=== PATIENT | female | born 1935 | race Caucasian/White ===

== ENCOUNTER 2016-07-11 12:46 | Inpatient (IN) | payer MEDICARE, OTHER ==
--- NOTE | ~2016-07-11 | HP ---
History And Physical [id number] [place]. [address] NAME: MELECIO VACA : 37 STATUS : ADM Tova PAT#: [id number] AGE: 81 ADM/REG DATE : 07/11/16 MR#: [id number] REPORT SERV DATE: 07/11/16 DICTATED BY: YING HESS DATE: 07/11/16 REPORT STATUS : Draft TRANSCRIBED BY: MODL DATE: 07/11/16 DATE OF ADMISSION: 07/11/2016 Please note, the patient may need different medical record number for this encounter, as the patient is a direct admission after elective surgery. The patient admitted from PAC unit on the Hospitalist Service. CHIEF COMPLAINT: Rapid atrial fibrillation. HISTORY OF THE PRESENT ILLNESS: Obtained from the patient as well as PAC unit nursing staff. Also, prior medical records available to us were thoroughly reviewed. According to the information available, the patient is a pleasant 81-year-old white woman with history of hypertension and diabetes type 2, insulin dependent with apparent recurrent nephrolithiasis, who was scheduled for elective right ureteral stent placement and stone extraction by Dr. Denny, Urology. Postoperatively, while recovering in the PAC unit, the patient was noticed to have atrial fibrillation with rapid response, heart rate reportedly 130s. Therefore, the patient was started on Cardizem drip and Hospitalist Service was requested for admission and further management and evaluation. Note that already the patient has been seen and evaluated by the Cardiology consult, also requested in the PAC unit. Presently, the patient is comfortable with Cardizem drip, heart rate around 90s. Denies chest pain. Denies palpitations. Denies shortness of breath. The patient denies any prior history of cardiac arrhythmia or any particular cardiac event such as [place], heart failure, or prior coronary artery disease. She has hypertension, relatively well controlled as per her account on present medication. Present complaints relate mostly to the discomfort with a stent placed and cystoscopy. PAST MEDICAL HISTORY: Significant for hypertension, significant for gout, significant for diabetes type 2 insulin dependent, significant for osteoarthritis, significant for GERD, significant for nephrolithiasis with apparent recurrent kidney stone with several times lithotripsies or cystoscopies and intervention for stone extraction. PAST SURGICAL HISTORY: Significant for knee replacement in 1999, lithotripsies four times or more, knee arthroscopy in 2012, fracture femoral surgery in 1999, appendectomy age 20, cholecystectomy laparoscopic in 11/2015 and today cystoscopy with stone removal and ureteral stent placement, breast tumor removed benign in the past, and left great toenail procedure in 2004. FAMILY HISTORY: Significant for hypertension and coronary artery disease. ALLERGIES: TO AUGMENTIN, PRODUCTS INCLUDING AMOXICILLIN AND CLAVULANIC ACID, SULFA ANTIBIOTICS, NEURONTIN, BUPROPION, ZYVOX, JANUVIA, AND MORPHINE WHICH MAKES HER HALLUCINATE. HOME MEDICATIONS: According to list provided, the patient is supposed to take allopurinol 100 mg p.o. daily, vitamin C 500 mg p.o. b.i.d., vitamin B12 at 1000 mcg p.o. daily, iron sulfate 325 mg p.o. t.i.d., Novolin N (NPH) 15 units subcu q.h.s., metformin extended release 500 mg p.o. t.i.d. with meals, Flexeril 10 mg p.o. q.h.s., Prilosec 40 mg p.o. History And Physical [address] [address] NAME: MELECIO VACA : 37 STATUS : ADM Tova PAT#: [id number] AGE: 81 ADM/REG DATE : 07/11/16 MR#: [id number] REPORT SERV DATE: 07/11/16 DICTATED BY: YING HESS DATE: 07/11/16 REPORT STATUS : Draft TRANSCRIBED BY: JOSE DATE: 07/11/16 q.a.m., Amaryl 4 mg p.o. q.a.m., vitamin D3 at 1000 units p.o. q.a.m., Toprol-XL 100 mg p.o. q.a.m., potassium citrated (Urocit-K) 5 mEq tablet takes 1080 mg p.o. q.a.m., lisinopril 40 mg p.o. q.a.m., multiple vitamin without minerals one tablet p.o. daily, Percocet 5/325 one p.o. q.4 hours p.r.n. pain, nitroglycerin sublingual p.r.n. chest pain, and Phenergan 25 mg p.o. q.4 hours p.r.n. nausea and vomiting. SOCIAL HISTORY: Lives with family. Denies tobacco abuse. Denies alcohol abuse. Denies illicit recreational drug abuse. REVIEW OF SYSTEMS: As per H and P, otherwise negative in all review of systems. Please note that the comprehensive review of system was obtained and pertinent positives were including in the H and P. PHYSICAL EXAMINATION: GENERAL: Pleasant, cooperant, in no distress at this moment, complaining of pain at the site of the stent. VITAL SIGNS: Upon examination in the PAC unit, blood pressure 130/70; pulse 90, on Cardizem drip; oxygen saturation 94% on 2 L by nasal cannula; temperature 36.3 celsius, and respiratory rate 20. HEENT: With bilateral cataracts. External ocular movements intact. Throat, mild erythema. No exudate. NECK: Supple. No JVD. No bruit. No thyromegaly. No lymph nodes. LUNGS: Bilateral air entry with few bibasilar crackles. No wheezing. Good airway movement heart positive S1, S2. Irregularly irregular. Positive mitral regurgitation murmur at the apex. No rub. No gallop. PMI not displaced by palpation. ABDOMEN: Positive bowel sounds. Soft with mild suprapubic tenderness. No rebound tenderness. No CVA tenderness. No hepatosplenomegaly. EXTREMITIES: Decreased range of motion. Osteoarthritic changes. No clubbing, no cyanosis, no edema. +2 pulses. No calf tenderness. NEUROLOGIC: Alert and oriented x3. Grossly nonfocal. Slightly anxious. Otherwise, appropriate mood, affect, and cognition. Cranial nerves 2 through 12 grossly intact. Motor strength 5/5 symmetrical bilateral. Deep tendon reflexes 2/2 symmetrical bilateral. BACK: With decreased range of motion. No focal localized tenderness. No CVA tenderness. SKIN: No bruises, no rashes, no lacerations. SIGNIFICANT LABORATORY DATA: EKG (personal reading) showed atrial fibrillation at 149 beats per minute. No acute ST elevation. No prior EKG available for comparison. Sodium 141, potassium 3.6, chloride 105, bicarb 28, BUN 17, creatinine 1.08, glucose 163, calcium 9.6. White cell count 10, hemoglobin 13.9, platelet count 217. Chest x-ray (personal reading) showed no acute infiltrate. ASSESSMENT AND PLAN AND PROBLEM LIST: The patient is a pleasant 81-year-old woman admitted on the Hospitalist Service after atrial fibrillation with rapid ventricular response postoperatively. IMPRESSION: History And Physical [address] [place]. [address] NAME: MELECIO VACA : 37 STATUS : ADM Tova PAT#: [id number] AGE: 81 ADM/REG DATE : 07/11/16 MR#: [id number] REPORT SERV DATE: 07/11/16 DICTATED BY: YING HESS DATE: 07/11/16 REPORT STATUS : Draft TRANSCRIBED BY: MODMatt DATE: 07/11/16 1. Cardiovascular. a. Atrial fibrillation with rapid ventricular response, possible new versus paroxysmal. b. Hypertension. Essential hypertension. For all the above, the patient has been admitted on the Hospitalist Service on the telemetry setting. We are going to obtain stat cardiac enzymes and CK troponin I as well as electrolytes including potassium, magnesium, and phosphorus levels. Correct as indicated. Cardizem drip started and going to be continued. The patient was started already on anticoagulation with Eliquis as per Cardiology consultation and apparently plans for OLI and cardioversion tomorrow a.m. if her condition/atrial fibrillation does not correct. Continue lisinopril, continue beta-brenda with Toprol-XL. P.r.n. IV hydralazine for increased blood pressure. 1. Endocrinologic problem. a. Diabetes type 2 with long-term insulin usage and with complications. We are going to hold metformin and Amaryl for now, as the patient is going to be n.p.o. Hold NPH. Use only sliding scale for the time being. Consider to add some long- acting Levemir if the patient stays in the hospital longer than one day. b. Gout by history. Continue allopurinol for now. 2. Gastroesophageal reflux disease without esophagitis. Continue PPI with Protonix 40 mg p.o. daily. 3. Renal and genitourinary problem. a. Chronic kidney disease stage 2, likely stable at baseline. b. Recurrent nephrolithiasis. Provide adequate IV hydration. Continue outpatient medication and her followup with her trend investigator. c. Status post right ureteral stent and stone removal. Continue to monitor. Adequate pain control as per Urology. 4. Osteoarthritis, osteoporosis, deconditioning. Continue adequate pain control. PROGNOSIS: Moderately good for this admission. Discussed with the patient. Questions were answered in full. Please note, the patient is a full code at this moment as discussed with the patient at bedside. GOPI/JOSE Ying Hess M.D. / [id number] CC: Nohelia Ross M.D.
--- NOTE | ~2016-07-11 | OP ---
Record Of Operation [facility] [address] [place]. [address] NAME: MELECIO VACA : 37 STATUS : ADM Tova PAT#: [id number] AGE: 81 ADM/REG DATE : 07/11/16 MR#: [id number] REPORT SERV DATE: 07/12/16 DICTATED BY: NICHOLAS NASCIMENTO DATE: 07/12/16 REPORT STATUS : Draft TRANSCRIBED BY: MODL DATE: 07/12/16 DATE OF PROCEDURE: 07/12/2016 TRANSESOPHAGEAL ECHOCARDIOGRAM AND CARDIOVERSION REPORT INDICATION: Atrial fibrillation. PROCEDURE DESCRIPTION: After informed consent, the patient was sedated with propofol by the Anesthesia Department. The transesophageal probe was placed on the first attempt. There were no complications. TRANSESOPHAGEAL ECHOCARDIOGRAM: 2D: 1. The aortic valve is trileaflet, but opens adequately. 2. There is no evidence of left atrial appendage thrombus. 3. Left ventricular size and systolic function appears normal. 4. There is asymmetric septal hypertrophy without significant resting left ventricular outflow tract obstruction noted. 5. The mitral valve appears structurally normal. 6. The left atrium is severely enlarged. 7. Right-sided chambers are normal in size. 8. The tricuspid valve is structurally normal. 9. There is no evidence of pericardial effusion. 10.There is moderate aortic atherosclerosis noted. No evidence of aortic aneurysm. Doppler: Pulsed wave Doppler in the left atrial appendage is less than 40 cm/second. Color flow: 1. There is mild aortic regurgitation. 2. There is proq-yb-bylyodux mitral regurgitation. 3. There is mild tricuspid regurgitation. CARDIOVERSION: A single synchronized 200 joule biphasic defibrillation was delivered. Atrial fibrillation converted to normal sinus rhythm. KEYSHA/JOSE Nicholas Nascimento M.D. / [id number] CC: Nohelia Smith M.D.
--- NOTE | ~2016-07-11 | DS ---
Discharge Summary [facility] [address] [facility] [place]. [address] NAME: MELECIO VACA : 37 STATUS : DIS IN PAT#: [id number] AGE: 81 ADM/REG DATE : 07/12/16 MR#: [id number] REPORT SERV DATE: 07/14/16 DICTATED BY: LADY LARKIN DATE: 07/13/16 REPORT STATUS : Draft TRANSCRIBED BY: MODL DATE: 07/13/16 ADMISSION DATE: 07/12/2016 DISCHARGE DATE: 07/13/2016 CONSULTING PHYSICIAN: Dr. Denny for Urology, Dr. Quintero for Cardiology. FINAL DIAGNOSES: 1. Status post cardioversion for paroxysmal atrial fibrillation, newly diagnosed. 2. Hypertension. 3. Diabetes. 4. Hypomagnesemia. 5. Status post stent for ureteral stone. DIAGNOSTIC EXAMS: Chest x-ray showing no acute process, no change. Echocardiogram showing left ventricular systolic function intact of 56%, right ventricular systolic function intact, no significant valvular dysfunction. HOSPITAL COURSE: This is a 81-year-old female who has a history of diabetes, recurrent nephrolithiasis and underwent an elective right ureteral stent placement and stone extraction. Postop, the patient went to rapid atrial fibrillation and Dr. Denny consulted us for admission and Cardiology as well. Dr. Quintero saw the patient, placed the patient on Eliquis with the clearance from Dr. Denny and scheduled for cardioversion. Dr. Cote admitted the patient, and later on, the patient underwent a successful cardioversion. However, she did have a hard time urinating afterwards and a Torres was placed and there is some hematuria. Because of this, the patient got scared and does not want to take the Eliquis anymore. I discussed this with Dr. Quintero and she said that the patient is a high risk for stroke. She would need to continue that. I explained this to them and the patient finally agreed. She expressed her wishes to go home. The patient is now in normal sinus rhythm, and according to Dr. Denny, she already has Levaquin and narcotics at home that she needs to continue. The patient will now be discharged once cleared by Cardiology. She will follow up with Dr. Jeffrey Suarez in one to two weeks. Follow up with Dr. Quintero in one to two months and Dr. Sahaj in two to three weeks. The patient will be on the following medications. Eliquis 5 mg twice a day, vitamin C 500 mg twice a day, Flexeril 10 mg at bedtime, vitamin D3 of 1000 units a day, Levaquin 750 mg a day, multivitamin once a day, Metoprolol-XL 100 mg a day, Prilosec 40 mg a day, potassium titrate 5 mEq tab q.a.m., Phenergan, Nitrostat p.r.n., Percocet p.r.n., iron 325 mg three times a day, Novolin N 15 units at bedtime, metformin 500 mg three times a day, Amaryl 4 mg a day. This has been discussed with the patient to the and to the daughter at length. TIME SPENT: 40 minutes. Discharge Summary [address] [address] NAME: MELECIO VACA : 37 STATUS : DIS IN PAT#: [id number] AGE: 81 ADM/REG DATE : 07/12/16 MR#: [id number] REPORT SERV DATE: 07/14/16 DICTATED BY: LADY LARKIN DATE: 07/13/16 REPORT STATUS : Draft TRANSCRIBED BY: JOSE DATE: 07/13/16 ARMAAN/JOSE Lady Larkin M.D. / [id number] CC: Nohelia Smith M.D.
--- NOTE | ~2016-07-11 | OP ---
Record Of Operation [facility] [address] [place]. [address] NAME: MELECIO VACA : 37 STATUS : ADM Tova PAT#: [id number] AGE: 81 ADM/REG DATE : 07/11/16 MR#: [id number] REPORT SERV DATE: 07/12/16 DICTATED BY: ELDON SAVAGE DATE: 07/11/16 REPORT STATUS : Draft TRANSCRIBED BY: MODMatt DATE: 07/11/16 DATE OF PROCEDURE: 07/11/2016 PREOPERATIVE DIAGNOSES: Distal right ureteral stones with hydronephrosis and intractable right flank pain, nausea, vomiting. POSTOPERATIVE DIAGNOSES: Distal right ureteral stones with hydronephrosis and intractable right flank pain, nausea, vomiting. PROCEDURE PERFORMED: Cystoscopy, right retrograde pyelogram, right rigid ureteroscopy with laser fragmentation of the largest stone and basket removal of approximately 6 calculi from the right distal ureter and ureteral stent placement. SURGEON: Elodn Savage M.D. ANESTHESIA: General. ESTIMATED BLOOD LOSS: Less than 5 mL. INDICATIONS: This is a 81-year-old white female with a history of recurrent and bilateral ureteral stone disease. She has had a 2-day history of severe right flank pain and intractable nausea and vomiting secondary to multiple stones in the distal right ureter causing significant right hydronephrosis. She also has nonobstructing bilateral renal calculi. We are planning endoscopic stone management. Risks of infection, bleeding, failure, need for further surgery, etc. have been discussed. PROCEDURE IN DETAIL: The patient was taken to the operating room and underwent a general anesthetic. She was placed in the lithotomy position on the table, and her external genitalia were sterilely prepped and draped. The 22-Maldivian cystoscope sheath with 30-degree lens was inserted under direct vision per urethra with the aid of the video monitor. The urine was Pyridium stained and very concentrated. She had a significant cystocele. Single orifices were seen bilaterally. There were no other abnormalities within the bladder. There were no stones in the bladder. A 5-Maldivian open-ended catheter was advanced into the right orifice and a retrograde pyelogram was obtained, which demonstrated 1 cm or 2 of normal looking ureter, then multiple filling defects associated with stones and hydronephrosis and hydroureter. The renal pelvis was quite capacious. An 0.038 guidewire was advanced up into the collecting system of the kidney under fluoroscopic guidance. The distal ureter was dilated using a 9.5/11-Maldivian ureteral access sheath with obturator. The short rigid ureteroscope was then advanced alongside the guidewire up into the ureter. Two small stones were immediately flushed into the bladder. A larger obstructing stone was noted and the 200 micron laser fiber was used to fragment the stone into a couple of pieces. Each piece was grasped with a 1.9-Maldivian nitinol basket and removed intact. Just proximal to this stone were several more stones. Three or four smaller stones were grasped and removed, and one larger remaining stone was removed as well. No other stones were identified in the distal ureter. The ureter was irritated at the site where the stones were impacted, but otherwise looked smoothly dilated and without any evidence of mass lesion. Record Of Operation [facility] [address] [facility] [place]. [address] NAME: MELECIO VACA : 37 STATUS : ADM Tova PAT#: [id number] AGE: 81 ADM/REG DATE : 07/11/16 MR#: [id number] REPORT SERV DATE: 07/12/16 DICTATED BY: ELDON SAVAGE DATE: 07/11/16 REPORT STATUS : Draft TRANSCRIBED BY: JOSE DATE: 07/11/16 The ureteroscope was withdrawn from the ureter and the cystoscope replaced over the guidewire and a 6-Maldivian x 28 cm contour stent was advanced over the guidewire, such that the proximal end of the stent was observed to coil in the pelvis of the kidney under fluoroscopic guidance and the distal end of the stent was visually observed to coil in the bladder following removal of the guidewire. The bladder was drained. All endoscopic apparatus was removed and the patient was taken to recovery in stable condition. DS/JOSE Eldon Savage M.D. / [id number] CC: Nohelia Smith M.D.
--- NOTE | ~2016-07-11 | CN ---
Consultation Report [facility] [address] [place]. [address] NAME: MELECIO VACA : 37 STATUS : ADM Tova PAT#: [id number] AGE: 81 ADM/REG DATE : 07/11/16 MR#: [id number] REPORT SERV DATE: 07/12/16 DICTATED BY: DATE: REPORT STATUS : Draft TRANSCRIBED BY: MODL DATE: 07/11/16 DATE OF CONSULTATION: 07/11/2016 CHIEF COMPLAINT/REASON FOR CONSULT: Atrial fibrillation with RVR. HISTORY OF PRESENT ILLNESS: Mrs. Aliya Vaca is a very delightful 81-year-old female with a past medical history significant for hypertension, diabetes, TIAs, and frequent episodes of nephrolithiasis. She began developing severe pain consistent with her nephrolithiasis on Monday. She contacted her urologist who asked her to present to the hospital this morning. When she presented to the hospital this morning, she was found to be in atrial fibrillation with rapid ventricular response at 149 beats per minute. She proceeded to the operating room in atrial fibrillation which was rate controlled with diltiazem and had six stones removed from her right distal ureter and a stent placed in her ureter. Preoperatively, the patient had no chest pain. No shortness of breath. She did not know she was in atrial fibrillation with rapid ventricular response. She is on long-standing metoprolol. She states that she has been asymptomatic from a cardiac standpoint. PAST MEDICAL HISTORY: 1. Nephrolithiasis, recurrent. 2. Hypertension. 3. Diabetes mellitus. 4. TIA versus cerebrovascular accident. ALLERGIES: SULFA, MORPHINE, AMOXICILLIN, GABAPENTIN, BUPROPION, LINEZOLID, AND JANUVIA. OUTPATIENT MEDICATIONS: Include: 1. Insulin. 2. Prinivil 40 mg p.o. q.a.m. 3. Metformin 500 mg p.o. t.i.d. 4. Metoprolol succinate 100 mg p.o. q.a.m. 5. Multivitamin. 6. Nitroglycerin. 7. Omeprazole. 8. Oxycodone and acetaminophen. 9. Potassium citrate. 10.Promethazine. 11.Vitamin B12. 12.Allopurinol. 13.Ascorbic acid. 14.Cholecalciferol. 15.Flexeril. 16.Glimepiride. SOCIAL HISTORY: The patient is . She does not smoke, drink, or use extracurricular Consultation Report [facility] [address] [place]. [address] NAME: MELECIO VACA : 37 STATUS : ADM Tova PAT#: [id number] AGE: 81 ADM/REG DATE : 07/11/16 MR#: [id number] REPORT SERV DATE: 07/12/16 DICTATED BY: DATE: REPORT STATUS : Draft TRANSCRIBED BY: MODL DATE: 07/11/16 drugs. Her father has a history of myocardial infarction. REVIEW OF SYSTEMS: All systems reviewed and is negative except for dictated in HPI. PHYSICAL EXAMINATION: VITAL SIGNS: At the bedside, the patient had a heart rate that ranged between 98 and 103 beats per minute. Blood pressure 106/52 to 138/76. Oxygen saturations 96% on 2 L. GENERAL: Mrs. Vaca is complaining of burning urethral pain. NECK: No jugular venous distention. No carotid bruits. HEART: Tachycardic. Mild irregularities. Soft S1, S2. I could not appreciate murmurs, rubs, or gallops. LUNGS: Clear to auscultation in all mcgregor. ABDOMEN: Soft and nontender. EXTREMITIES: Warm and well perfused. There is no pitting edema present. The hands and feet are cold. NEUROLOGIC: I could not appreciate focal neurologic deficits. REVIEW OF TEST RECORDS AND MEDICAL DECISION MAKING: Hemoglobin 13.9, hematocrit of 40.5, and platelet count is 217. Sodium 141, potassium 3.6, BUN 17, creatinine 1.08, glucose is 163, and calcium is 9.6. An EKG performed preoperatively demonstrated atrial fibrillation with rapid ventricular response. IMPRESSION REPORT AND PLAN: Atrial fibrillation with rapid ventricular response, unclear duration. RECOMMENDATIONS: 1. I discussed this with her urologist, Dr. Denny, and there is no current contraindication to anticoagulation. 2. We would start Eliquis 5 mg p.o. b.i.d. for secondary stroke prevention. 3. Would add magnesium, TSH, free T4 to existing labs. 4. Check echocardiogram in a.m. 07/12/2016 for atrial fibrillation with rapid ventricular response. 5. Would obtain EKG if she converts to sinus rhythm. 6. I have discussed the risks, benefits, and alternatives of transesophageal echocardiogram with cardioversion in the morning of 07/12/2016, and the patient is agreeable to proceed. 7. We would continue diltiazem drip via protocol overnight. 8. Additional recommendations pending clinical course. It has been my pleasure to participate in the care of this very pleasant lady. [facility] Consultation Report [facility] [address] [place]. [address] NAME: MELECIO VACA : 37 STATUS : ADM Tova PAT#: [id number] AGE: 81 ADM/REG DATE : 07/11/16 MR#: [id number] REPORT SERV DATE: 07/12/16 DICTATED BY: DATE: REPORT STATUS : Draft TRANSCRIBED BY: JOSE DATE: 07/11/16 Senia Quintero M.D. / [id number] CC: Nohelia Smith M.D.
[~2016-07-11 12:46] MED LIST: ACTOS15 PO; AMARYL4 PO; ASAB PO; ATV.5 PO; AVANDIA4 PO; B-125000 MCG SL; BENICAR40 PO; C2 PO; CLARIT10 PO; CYANO1000T PO; DCN100 PO; DSS PO; EVISTA60 PO; FESO4 PO; FLEX PO; FORTAMET500 MG PO; GLUCPH8 PO; IMOD PO; INSNOVN SC; INSNOVR SC; IRON325 MG PO; KLONO1 PO; LISINOPRIL40 MG PO; METAGLIP PO; METAGLIP1 TA2 PO; METHOC500B PO; MULTIPLE VIT PO; MULTIVITAMI1 PO; NITROSTAT0.4 MG SL; NOVOLOG SC; PCET PO; PR25 PO; PRILO PO; PRILOSEC40 MG PO; PROTONIX PO; SEPTRA DS1 TAB PO; TOPXL100 PO; UROCIT-K 10 OR; UROCIT-K 5540 MG PO; VITAMIN B-121000 MC1 SL; VITAMIN B12 PO; VITAMIN D31000 UNIT PO; VITC500 PO; VITD PO; Z100 PO; ZOFRAN4 PO; [UNRECOGNIZED DRUG - OTHER] PO
[2016-07-11 14:01] LABS: BASOPHILS 0.1 %; BASOPHILS ABSOLUTE 0.01 10/3/uL (0.0-0.16); EOSINOPHILS 0.3 %; EOSINOPHILS ABSOLUTE 0.03 10/3/uL (0.0-0.53); HEMATOCRIT 40.5 % (36.0-48.0); HEMOGLOBIN 13.9 g/dL (12.0-16.0); IMMATURE GRANULOCYTES 0.4 %; IMMATURE GRANULOCYTES ABSOLUTE 0.04 10/3/uL (0.0-0.11); LYMPHOCYTES 13.5 %; LYMPHOCYTES ABSOLUTE 1.35 10/3/uL (0.67-4.30); MANUAL DIFF NO %; MEAN CORPUS HGB CONC 34.3 g/dL (32.0-36.0); MEAN CORPUSCULAR HEMOGLOB 30.5 pg (26.0-34.0); MEAN CORPUSCULAR VOLUME 88.8 fL (80-100); MEAN PLATELET VOLUME 10.1 fL (9.2-13.0); MONOCYTES 11.5 %; MONOCYTES ABSOLUTE 1.15 10/3/uL (0.21-1.20); NEUTROPHILS 74.2 %; NEUTROPHILS ABSOLUTE 7.39 10/3/uL (2.02-8.40); PLATELET COUNT 217 10/3/uL (150-400); RBC DISTRIBUTION WIDTH 14.4 % (12.0-16.0); RED CELL COUNT 4.56 10/6/uL (4.0-5.6)
[2016-07-11 14:14] LABS: BUN (BLOOD UREA NITROGEN) 17 MG/DL (6-23); CALCIUM, SERUM 9.6 MG/DL (8.5-10.4); CHLORIDE, SERUM 105 MMOL/L (96-112); CO2 (CARBON DIOXIDE) 28 MMOL/L (24-34); CREATININE 1.08 MG/DL (0.55-1.02); GFR AFRICAN AMERICAN 57 ML/MIN (>=60); GFR NON AFRICAN AMERICAN 49 ML/MIN (>=60); GLUCOSE, SERUM 163 MG/DL (60-99); POTASSIUM, SERUM 3.6 MMOL/L (3.5-5.3); SODIUM, SERUM 141 MMOL/L (135-148)
[2016-07-11 21:44] LABS: FREE T4 1.39 NG/DL (0.76-1.46)
[2016-07-11 22:02] LABS: INTERNATIONAL NORMAL RATI 1.3 UNITS (-); PARTIAL THROMBO TIME 36.7 SEC (22.5-37.2); PROTIME (NOT ORD) 15.6 SEC (12.0-14.5)
[2016-07-11 22:13] LABS: A/G RATIO 0.9 (0.7-1.9); ALBUMIN 2.9 G/DL (3.5-5.0); ALKALINE PHOSPHATASE 45 U/L (45-117); BUN (BLOOD UREA NITROGEN) 18 MG/DL (6-23); CALCIUM, SERUM 9.1 MG/DL (8.5-10.4); CHLORIDE, SERUM 106 MMOL/L (96-112); CK-MB 3.1 NG/ML; CO2 (CARBON DIOXIDE) 23 MMOL/L (24-34); CPK 60 U/L (0-200); CREATININE 0.97 MG/DL (0.55-1.02); GFR AFRICAN AMERICAN 64 ML/MIN (>=60); GFR NON AFRICAN AMERICAN 56 ML/MIN (>=60); GLOBULIN 3.4 G/DL (2.5-4.1); GLUCOSE, SERUM 147 MG/DL (60-99); PHOSPHORUS, SERUM 2.7 MG/DL (2.5-4.5); POTASSIUM, SERUM 3.5 MMOL/L (3.5-5.3); SGOT(AST) 12 U/L (5-40); SGPT(ALT) 11 U/L (5-65); SODIUM, SERUM 141 MMOL/L (135-148); TOTAL BILIRUBIN 0.5 MG/DL (0-1.2); TOTAL PROTEIN 6.3 G/DL (6.0-8.5); TROPONIN I <0.02 NG/ML (<0.05)
[2016-07-12 05:46] LABS: BASOPHILS 0.3 %; BASOPHILS ABSOLUTE 0.02 10/3/uL (0.0-0.16); EOSINOPHILS 1.6 %; EOSINOPHILS ABSOLUTE 0.11 10/3/uL (0.0-0.53); HEMATOCRIT 35.9 % (36.0-48.0); HEMOGLOBIN 12.1 g/dL (12.0-16.0); IMMATURE GRANULOCYTES 0.3 %; IMMATURE GRANULOCYTES ABSOLUTE 0.02 10/3/uL (0.0-0.11); LYMPHOCYTES 20.8 %; LYMPHOCYTES ABSOLUTE 1.46 10/3/uL (0.67-4.30); MEAN CORPUS HGB CONC 33.7 g/dL (32.0-36.0); MEAN CORPUSCULAR HEMOGLOB 30.6 pg (26.0-34.0); MEAN CORPUSCULAR VOLUME 90.7 fL (80-100); MEAN PLATELET VOLUME 10.6 fL (9.2-13.0); MONOCYTES 13.7 %; MONOCYTES ABSOLUTE 0.96 10/3/uL (0.21-1.20); NEUTROPHILS 63.3 %; NEUTROPHILS ABSOLUTE 4.45 10/3/uL (2.02-8.40); PLATELET COUNT 182 10/3/uL (150-400); RBC DISTRIBUTION WIDTH 14.6 % (12.0-16.0); RED CELL COUNT 3.96 10/6/uL (4.0-5.6)
[2016-07-12 05:47] LABS: MANUAL DIFF NO %
[2016-07-12 08:02] LABS: ALBUMIN 2.7 G/DL (3.5-5.0); BUN (BLOOD UREA NITROGEN) 19 MG/DL (6-23); CALCIUM, SERUM 8.8 MG/DL (8.5-10.4); CHLORIDE, SERUM 108 MMOL/L (96-112); CO2 (CARBON DIOXIDE) 25 MMOL/L (24-34); CPK 54 U/L (0-200); GFR AFRICAN AMERICAN 50 ML/MIN (>=60); GFR NON AFRICAN AMERICAN 43 ML/MIN (>=60); GLUCOSE, SERUM 125 MG/DL (60-99); PHOSPHORUS, SERUM 3.3 MG/DL (2.5-4.5); POTASSIUM, SERUM 3.8 MMOL/L (3.5-5.3); SODIUM, SERUM 142 MMOL/L (135-148); TROPONIN I <0.02 NG/ML (<0.05)
[2016-07-12 08:03] LABS: CHOL/HDL RATIO(NOT ORDER) 4.1 (0-5); CHOLESTEROL 112 MG/DL (< 200); CK-MB 2.8 NG/ML; HDL CHOLESTEROL 27 MG/DL (> 49); LDL CHOLESTEROL 58 MG/DL (< 130); NON-HDL CHOLESTEROL 85 MG/DL (< 160); TRIGLYCERIDE 137 MG/DL (< 150)
[2016-07-13 06:02] LABS: BASOPHILS 0.2 %; BASOPHILS ABSOLUTE 0.01 10/3/uL (0.0-0.16); EOSINOPHILS 2.2 %; EOSINOPHILS ABSOLUTE 0.13 10/3/uL (0.0-0.53); HEMATOCRIT 35.3 % (36.0-48.0); HEMOGLOBIN 11.8 g/dL (12.0-16.0); IMMATURE GRANULOCYTES 0.5 %; IMMATURE GRANULOCYTES ABSOLUTE 0.03 10/3/uL (0.0-0.11); LYMPHOCYTES 15.2 %; MEAN CORPUS HGB CONC 33.4 g/dL (32.0-36.0); MEAN CORPUSCULAR HEMOGLOB 30.2 pg (26.0-34.0); MEAN CORPUSCULAR VOLUME 90.3 fL (80-100); MEAN PLATELET VOLUME 9.9 fL (9.2-13.0); MONOCYTES 7.9 %; MONOCYTES ABSOLUTE 0.47 10/3/uL (0.21-1.20); PLATELET COUNT 158 10/3/uL (150-400); RBC DISTRIBUTION WIDTH 14.2 % (12.0-16.0); RED CELL COUNT 3.91 10/6/uL (4.0-5.6); WHITE BLOOD CELLS 5.9 10/3/uL (4.5-10.5)
[2016-07-13 06:03] LABS: MANUAL DIFF NO %
[2016-07-13 06:12] LABS: CALCIUM, SERUM 8.9 MG/DL (8.5-10.4); CHLORIDE, SERUM 110 MMOL/L (96-112); CO2 (CARBON DIOXIDE) 24 MMOL/L (24-34); CREATININE 0.85 MG/DL (0.55-1.02); GFR AFRICAN AMERICAN 76 ML/MIN (>=60); GFR NON AFRICAN AMERICAN 65 ML/MIN (>=60); SODIUM, SERUM 141 MMOL/L (135-148)
[2016-07-13 06:14] LABS: BUN (BLOOD UREA NITROGEN) 14 MG/DL (6-23); GLUCOSE, SERUM 171 MG/DL (60-99)
[2016-07-13] MEDS ORDERED: ELIQUIS 5 MG TAB5 MG PO (15:32)
[2016-07-13] MEDS ORDERED: LEVAQUIN750 MG PO (15:34)
[2016-07-15 23:59] LABS: STONE COMPOSITION TWO DNR (())
== END 2016-07-13 16:54 | disposition home or self-care (01) | DRG 988 ==
LOC: SDC 12:46 → 2SO 20:58
PROVIDERS: Internal Medicine; Urology
PROC: BT1D1ZZ Fluoroscopy of Right Kidney, Ureter and Bladder using Low Osmolar Contrast (ICD-10-PCS; 2016-07-11)
PROC: 0T768DZ Dilation of Right Ureter with Intraluminal Device, Via Natural or Artificial Opening Endoscopic (ICD-10-PCS; 2016-07-11)
PROC: 0T9680Z Drainage of Right Ureter with Drainage Device, Via Natural or Artificial Opening Endoscopic (ICD-10-PCS; 2016-07-11)
PROC: 0TC68ZZ Extirpation of Matter from Right Ureter, Via Natural or Artificial Opening Endoscopic (ICD-10-PCS; principal; 2016-07-11 15:30)
PROC: B246ZZ4 Ultrasonography of Right and Left Heart, Transesophageal (ICD-10-PCS; 2016-07-12)
PROC: 5A2204Z Restoration of Cardiac Rhythm, Single (ICD-10-PCS; 2016-07-12)
DX: I48.0 Paroxysmal atrial fibrillation (principal); N13.2 Hydronephrosis with renal and ureteral calculous obstruction; E83.42 Hypomagnesemia; E11.9 Type 2 diabetes mellitus without complications; M10.9 Gout, unspecified; M19.90 Unspecified osteoarthritis, unspecified site; K21.9 Gastro-esophageal reflux disease without esophagitis; I34.0 Nonrheumatic mitral (valve) insufficiency; I12.9 Hypertensive chronic kidney disease with stage 1 through stage 4 chronic kidney disease, or unspecified chronic kidney disease; N18.2 Chronic kidney disease, stage 2 (mild); Z96.659 Presence of unspecified artificial knee joint; Z86.73 Personal history of transient ischemic attack (TIA), and cerebral infarction without residual deficits; Z87.442 Personal history of urinary calculi; Z88.2 Allergy status to sulfonamides; Z88.5 Allergy status to narcotic agent; Z88.1 Allergy status to other antibiotic agents; Z88.8 Allergy status to other drugs, medicaments and biological substances; Z79.4 Long term (current) use of insulin; Z82.49 Family history of ischemic heart disease and other diseases of the circulatory system; Z98.890 Other specified postprocedural states
CPT/HCPCS: 71010; 74420; 80048; 80053; 80061; 80069; 82365; 82550; 82553; 82962; 83036; 83735; 84100; 84439; 84443; 84484; 85025; 85610; 85730; 92960; 93005; 93306; 93312; 93320; 93325; A9270-GY; C1758; C1894; J2370; J2405; J2710; J3010; J3475; Q9967